=== PATIENT | male | born 1945 | race Caucasian/White ===

== ENCOUNTER 2018-07-03 10:51 | Inpatient (IN) | payer MEDICARE, OTHER ==
[~2018-07-03] VITALS: Ht 167.6 cm; Wt 118.0 kg
[2018-07-03] MEDS ORDERED: aspirin 81mg tab.chew PO ONE (11:35)
[2018-07-03 11:41] LABS: BASOPHILS # (AUTO) 0.1 X10'3 (0-0.2); BASOPHILS % (AUTO) 1.1 % (0-1); EOSINOPHILS # (AUTO) 0.2 X10'3 (0-0.9); EOSINOPHILS % (AUTO) 2.9 % (0-6); HEMATOCRIT 47.3 % (42.0-52.0); HEMOGLOBIN 16.1 g/dl (14.0-17.9); LYMPHOCYTES # (AUTO) 1.6 X10'3 (1.1-4.8); LYMPHOCYTES % (AUTO) 26.1 % (21-51); MEAN CORPUSCULAR HEMOGLOBIN 32.5 PG (27.0-31.0); MEAN CORPUSCULAR VOLUME 95.7 FL (78-98); MEAN PLATELET VOLUME 9.1 FL (7.4-10.4); MONOCYTES # (AUTO) 0.4 X10'3 (0-0.9); MONOCYTES % (AUTO) 7.1 % (2-12); NEUTROPHILS # (AUTO) 3.9 X10'3 (1.8-7.7); NEUTROPHILS % (AUTO) 62.8 % (42-75); PLATELET COUNT 115 X10'3 (140-440); RED BLOOD COUNT 4.94 X10'6 (4.70-6.10); RED CELL DISTRIBUTION WIDTH 14.4 % (11.5-14.5); WHITE BLOOD COUNT 6.2 X10'3 (4.5-11.0)
[2018-07-03] MEDS ORDERED: methylPREDNISolone sod succ 125mg/2ml vial IV ONE (11:45)
[2018-07-03] MEDS ORDERED: ipratropium/albuterol 3ml nebule NEB ONE (11:45)
[2018-07-03] MEDS ORDERED: furosemide 40mg/4ml inj IV ONE (11:50)
[2018-07-03] MEDS ORDERED: furosemide 10 MG/1 ML 10ml inj IV ONE (11:50)
[2018-07-03 12:28] LABS: INR 1.1 INR; PARTIAL THROMBOPLASTIN TIME 22 SECONDS (22-32)
[2018-07-03 12:30] LABS: ALANINE AMINOTRANSFERASE 49 U/L (12-78); ALBUMIN/GLOBULIN RATIO 0.8 (1.1-1.5); ALKALINE PHOSPHATASE 68 IU/L (46-116); ANION GAP 4 (8-16); ASPARTATE AMINO TRANSFERASE 33 U/L (10-37); BILIRUBIN,TOTAL 0.6 MG/DL (0.1-1.0); BLOOD UREA NITROGEN 14 MG/DL (7-18); CALCIUM 9.1 MG/DL (8.5-10.1); CHLORIDE 107 MMOL/L (99-107); GLUCOSE 176 MG/DL (70-104); POTASSIUM 4.1 MMOL/L (3.5-5.1); SODIUM 138 MMOL/L (135-145); TOTAL CARBON DIOXIDE 27.2 MMOL/L (24-32); eGFR 73 ML/MIN
[2018-07-03] MEDS ORDERED: iohexol 350MG/ML 100ml bottle IV ONE (13:22)
[2018-07-03] MEDS ORDERED: magnesium hydroxide 30ml (MOM) UD suspension PO PRN (14:35)
[2018-07-03] MEDS ORDERED: ondansetron/PF 4mg/2ml inj IV PRN (14:35)
[2018-07-03] MEDS ORDERED: acetaminophen 325mg tablet PO PRN (14:35)
[2018-07-03] MEDS ORDERED: mag hydrox/Alum hydrox/simeth 30ml oral suspension PO PRN (14:35)
[2018-07-03] MEDS ORDERED: ASPI-611 PO (14:53)
[2018-07-03] MEDS ORDERED: PRAM3TAB PO (14:54)
[2018-07-03] MEDS ORDERED: [UNRECOGNIZED DRUG - CODE] PO (14:56)
[2018-07-03] MEDS: ipratropium/albuterol 3ml nebule NEB SCH ×3 (15:53→23:19)
--- NOTE | 2018-07-03 17:30 | NUR ---
Unable to perform 2 RN skin check for this patient due to admit at end of shift.
--- NOTE | 2018-07-03 17:30 | NUR ---
Received report from BUNNY Beckwith. Patient arrived to 3013A transported by wheelchair. Patient ambulated to bed without assistance. electronic device monitor initiated. Patient VS: T 98.5, HR: 96: RR: 24, BP 181/72, O2 92 2L NC. Pain 0/10. Patient oriented to room and to call light. In no acute distress. Will continue to monitor.
[2018-07-03 18:00] VITALS: BP 154/68
--- NOTE | 2018-07-03 18:25 | NUR ---
Problems reprioritized. Patient report given, questions answered & plan of care reviewed with Anca HOLLIS.
--- NOTE | 2018-07-03 18:40 | NUR ---
Patient in room PCU 3013. I have received report from Genna HOLLIS and had the opportunity to ask questions and assume patient care. AAO, family at bedside, simple mask 2L, SL
[2018-07-03] MEDS: levoFLOXACIN-Levaquin 750MG/D5 150 ML IV SCH (19:03)
[2018-07-03] MEDS: heparin, porcine 5000 units/ml vial SQ SCH (20:00)
[2018-07-03] MEDS: PRAMIPEXOLE PO SCH (21:00)
[2018-07-03] MEDS ORDERED: PRAMIPEXOLE DI HCL PO SCH (21:00)
[2018-07-03] MEDS: methylPREDNISolone sod succ 125mg/2ml vial IV SCH (21:16)
[2018-07-03] MEDS: furosemide 40mg/4ml inj IV SCH (21:16)
[2018-07-03 23:00] VITALS: BP 122/57
[2018-07-04] MEDS: methylPREDNISolone sod succ 125mg/2ml vial IV SCH ×4 (02:17→20:15)
[2018-07-04] MEDS: ipratropium/albuterol 3ml nebule NEB SCH ×6 (02:54→23:17)
[2018-07-04 03:00] VITALS: BP 110/46
[2018-07-04 05:22] LABS: BASOPHILS % (AUTO) 0.3 % (0-1); EOSINOPHILS % (AUTO) 0 % (0-6); HEMATOCRIT 50.4 % (42.0-52.0); HEMOGLOBIN 17.1 g/dl (14.0-17.9); LYMPHOCYTES # (AUTO) 0.7 X10'3 (1.1-4.8); LYMPHOCYTES % (AUTO) 6.8 % (21-51); MEAN CORPUSCULAR HEMOGLOBIN 32.6 PG (27.0-31.0); MEAN CORPUSCULAR HGB CONC 33.9 g/dL (33.0-36.5); MEAN CORPUSCULAR VOLUME 96.2 FL (78-98); MEAN PLATELET VOLUME 9.2 FL (7.4-10.4); MONOCYTES # (AUTO) 0.1 X10'3 (0-0.9); MONOCYTES % (AUTO) 1.2 % (2-12); NEUTROPHILS # (AUTO) 9.4 X10'3 (1.8-7.7); NEUTROPHILS % (AUTO) 91.7 % (42-75); PLATELET COUNT 129 X10'3 (140-440); RED BLOOD COUNT 5.24 X10'6 (4.70-6.10); RED CELL DISTRIBUTION WIDTH 14.4 % (11.5-14.5); WHITE BLOOD COUNT 10.3 X10'3 (4.5-11.0)
[2018-07-04 05:39] LABS: ALBUMIN 3.1 G/DL (3.4-5.0); ANION GAP 8 (8-16); BLOOD UREA NITROGEN 22 MG/DL (7-18); BUN/CREATININE RATIO 15.6 (5.4-32.0); CALCIUM 9.7 MG/DL (8.5-10.1); CHLORIDE 104 MMOL/L (99-107); CREATININE 1.41 MG/DL (0.60-1.10); GLUCOSE 197 MG/DL (70-104); POTASSIUM 4.1 MMOL/L (3.5-5.1); SODIUM 140 MMOL/L (135-145); TOTAL CARBON DIOXIDE 27.9 MMOL/L (24-32); eGFR 49 ML/MIN
[2018-07-04 06:00] VITALS: BP 126/65
--- NOTE | 2018-07-04 06:15 | NUR ---
Patient in room PCU 3013. I have received report from BUNNY March and had the opportunity to ask questions and assume patient care.
--- NOTE | 2018-07-04 06:37 | NUR ---
Problems reprioritized. Patient report given, questions answered & plan of care reviewed with Dari HOLLIS.
[2018-07-04] MEDS: furosemide 40mg/4ml inj IV SCH ×2 (07:32→20:15)
[2018-07-04] MEDS: levoFLOXACIN-Levaquin 750MG/D5 150 ML IV SCH (07:33)
[2018-07-04] MEDS: aspirin 81mg tablet.DR PO SCH (07:33)
[2018-07-04] MEDS: heparin, porcine 5000 units/ml vial SQ SCH ×2 (08:00→20:00)
[2018-07-04] MEDS ORDERED: non-formulary drug (Aspirin (Aspir 81) 1 TAB) PO SCH (08:00)
[2018-07-04 11:00] VITALS: BP 153/59
[2018-07-04 15:15] VITALS: BP 125/49
[2018-07-04 18:00] VITALS: BP 111/53
--- NOTE | 2018-07-04 18:55 | NUR ---
Problems reprioritized. Patient report given, questions answered & plan of care reviewed with BUNNY March.
--- NOTE | 2018-07-04 18:55 | NUR ---
Orientee documentation: I have reviewed and agree with all interventions, assessments performed and documented by BUNNY Bacon.
[2018-07-04] MEDS: PRAMIPEXOLE PO SCH (20:17)
[2018-07-04 23:00] VITALS: BP 117/63
[2018-07-05] MEDS: methylPREDNISolone sod succ 125mg/2ml vial IV SCH ×3 (02:26→15:28)
[2018-07-05 03:00] VITALS: BP 157/81
[2018-07-05] MEDS: ipratropium/albuterol 3ml nebule NEB SCH ×2 (03:52→08:35)
[2018-07-05 04:49] LABS: EOSINOPHILS % (AUTO) 0 % (0-6); LYMPHOCYTES # (AUTO) 0.8 X10'3 (1.1-4.8); MEAN PLATELET VOLUME 8.9 FL (7.4-10.4); MONOCYTES # (AUTO) 0.4 X10'3 (0-0.9); MONOCYTES % (AUTO) 2.2 % (2-12)
[2018-07-05 04:51] LABS: BASOPHILS % (AUTO) 0.2 % (0-1); HEMATOCRIT 51.6 % (42.0-52.0); LYMPHOCYTES % (AUTO) 4.8 % (21-51); MEAN CORPUSCULAR HEMOGLOBIN 31.9 PG (27.0-31.0); MEAN CORPUSCULAR VOLUME 96.9 FL (78-98); NEUTROPHILS # (AUTO) 15.3 X10'3 (1.8-7.7); NEUTROPHILS % (AUTO) 92.8 % (42-75); PLATELET COUNT 143 X10'3 (140-440); RED BLOOD COUNT 5.32 X10'6 (4.70-6.10); RED CELL DISTRIBUTION WIDTH 14.5 % (11.5-14.5); WHITE BLOOD COUNT 16.5 X10'3 (4.5-11.0)
[2018-07-05 05:25] LABS: ALBUMIN 3.2 G/DL (3.4-5.0); ANION GAP 11 (8-16); BLOOD UREA NITROGEN 37 MG/DL (7-18); BUN/CREATININE RATIO 25.7 (5.4-32.0); CALCIUM 9.8 MG/DL (8.5-10.1); CHLORIDE 101 MMOL/L (99-107); CREATININE 1.44 MG/DL (0.60-1.10); GLUCOSE 220 MG/DL (70-104); POTASSIUM 4.5 MMOL/L (3.5-5.1); SODIUM 139 MMOL/L (135-145); TOTAL CARBON DIOXIDE 26.8 MMOL/L (24-32); eGFR 48 ML/MIN
--- NOTE | 2018-07-05 06:29 | NUR ---
Problems reprioritized. Patient report given, questions answered & plan of care reviewed with Yuliana HOLLIS.
--- NOTE | 2018-07-05 06:33 | NUR ---
Patient in room PCU 3013. I have received report from Anca HOLLIS and had the opportunity to ask questions and assume patient care. Pt is alert and oriented X 4, on 2 Liters NC, in no apparent distress, will continue to monitor.
--- NOTE | 2018-07-05 06:53 | NUR ---
Patient in room PCU 3013. I have received report from Anca HOLLIS and had the opportunity to ask questions and assume patient care. pt was alert and oriented, NC on at 2L
[2018-07-05 07:00] VITALS: BP 114/59
[2018-07-05] MEDS: aspirin 81mg tablet.DR PO SCH (07:29)
[2018-07-05] MEDS: furosemide 40mg/4ml inj IV SCH (07:29)
[2018-07-05] MEDS: heparin, porcine 5000 units/ml vial SQ SCH (07:31)
[2018-07-05] MEDS: levoFLOXACIN-Levaquin 750MG/D5 150 ML IV SCH (07:31)
--- NOTE | 2018-07-05 10:17 | NUR ---
O2 Sat at rest on room air:_90__% If O2 Sat did not drop below 89% on room air,ambulate patient on room air. O2 Sat while ambulating on room air:__85_% Recovery O2 Sat while ambulating on _2__LPM:_90__% No further documentation is necessary.
[2018-07-05 11:00] VITALS: BP 138/50
[2018-07-05] MEDS ORDERED: ALBU8HFA PO (11:40)
[2018-07-05] MEDS ORDERED: LEVO750T21 PO (11:40)
[2018-07-05] MEDS ORDERED: FURO-149 PO (11:40)
[2018-07-05] MEDS ORDERED: POTA20TA19 PO (11:40)
[2018-07-05] MEDS ORDERED: FLUT1DIS4 INH (11:40)
[2018-07-05] MEDS ORDERED: PRED10TA23 PO (11:40)
--- NOTE | 2018-07-05 15:40 | NUR ---
pt discharged, IV and tele discontinued, O2 concentrator with patient, received meds from [facility]'s bedside, is occupying pt home in private vehicle, walked down to vehicle with patient respiratory care practitioner, discharge packet given with med and diagnostic teaching materials, materials explained.
--- NOTE | 2018-07-05 17:12 | NUR ---
I have reviewed and agree with interventions, assessments performed and documented by Jordi RN. For this medication-pass time frame, medications were reviewed, dispensed, administered and documented per hospital policy by Jordi RN .
== END 2018-07-05 16:01 | disposition home or self-care (01) | DRG 291 ==
LOC: ER 10:52 → PCU 3S 14:37 → CMPBEDREQ 19:31
PROVIDERS: ADMIT Family Medicine; ATTEND Family Medicine
PROC: B32T1ZZ Computerized Tomography (CT Scan) of Left Pulmonary Artery using Low Osmolar Contrast (ICD-10-PCS; 2018-07-03)
PROC: B3201ZZ Computerized Tomography (CT Scan) of Thoracic Aorta using Low Osmolar Contrast (ICD-10-PCS; 2018-07-03)
PROC: B32S1ZZ Computerized Tomography (CT Scan) of Right Pulmonary Artery using Low Osmolar Contrast (ICD-10-PCS; 2018-07-03)
PROC: 5A09357 Assistance with Respiratory Ventilation, Less than 24 Consecutive Hours, Continuous Positive Airway Pressure (ICD-10-PCS; principal; 2018-07-04)
PROC: 5A09357 Assistance with Respiratory Ventilation, Less than 24 Consecutive Hours, Continuous Positive Airway Pressure (ICD-10-PCS; 2018-07-05)
DX: I11.0 Hypertensive heart disease with heart failure (principal); J18.1 Lobar pneumonia, unspecified organism; J96.21 Acute and chronic respiratory failure with hypoxia; J44.0 Chronic obstructive pulmonary disease with (acute) lower respiratory infection; J44.1 Chronic obstructive pulmonary disease with (acute) exacerbation; Z68.41 Body mass index [BMI] 40.0-44.9, adult; I50.33 Acute on chronic diastolic (congestive) heart failure; E11.9 Type 2 diabetes mellitus without complications; E78.00 Pure hypercholesterolemia, unspecified; E78.5 Hyperlipidemia, unspecified; G47.30 Sleep apnea, unspecified; E66.01 Morbid (severe) obesity due to excess calories; F32.9 Major depressive disorder, single episode, unspecified; G89.29 Other chronic pain; Z88.7 Allergy status to serum and vaccine; Z87.891 Personal history of nicotine dependence
CPT/HCPCS: 36415; 71045; 71275; 80048; 80053; 83880; 84484; 85025; 85610; 85730; 87070; 93005; 93306; 93970; 94640; 94660; 94760; 96374; 96375; 99285; G0378; J1644; J1940; J1956; J2930; Q9967

== ENCOUNTER 2019-01-24 12:45 | Outpatient (CLI) | payer OTHER ==
[~2019-01-24 12:45] MED LIST: ASPI-611 PO; FLUT1DIS4 INH; FURO-149 PO; [UNRECOGNIZED DRUG - CODE] PO
== END 2019-01-24 23:59 | disposition home or self-care (01) ==
LOC: CARD DIAG 12:45
PROVIDERS: ATTEND Orthopaedic Surgery
DX: I08.3 Combined rheumatic disorders of mitral, aortic and tricuspid valves (principal); I11.9 Hypertensive heart disease without heart failure; I25.9 Chronic ischemic heart disease, unspecified; E11.9 Type 2 diabetes mellitus without complications; J44.9 Chronic obstructive pulmonary disease, unspecified; M19.90 Unspecified osteoarthritis, unspecified site; Z87.891 Personal history of nicotine dependence
CPT/HCPCS: 93306